=== PATIENT | female | born 1940 ===

== ENCOUNTER 2024-05-30 07:02 | Day surgery (SDC) | payer OTHER ==
[2024-05-30] MEDS ORDERED: DIPHENHYDRAMINE HCL 50 MG/ML VIAL 1ML IV ONE (09:45)
[2024-05-30] MEDS ORDERED: MIDAZOLAM HCL 2 MG/2 ML VIAL IV ONE (09:45)
[2024-05-30] MEDS ORDERED: fentaNYL CITRATE 50 MCG/ML AMPUL IV PUSH ONE (09:45)
== END 2024-05-30 12:55 | disposition home or self-care (01) ==
LOC: AMB-ENDOS 07:02
PROVIDERS: ATTEND Internal Medicine
DX: D12.2 Benign neoplasm of ascending colon (principal); D12.3 Benign neoplasm of transverse colon; K63.5 Polyp of colon; K64.8 Other hemorrhoids